=== PATIENT | female | born 1950 | race Caucasian/White ===

== ENCOUNTER → 2018-12-14 08:47 | Outpatient (CLI) | payer MEDICARE, SELFPAY ==
--- NOTE | 2018-12-14 08:54 | FL_ITS ---
PROCEDURE: FL UPPER GI SMALL BOWEL CLINICAL INDICATION: ABD PAIN Diffuse abdominal pain, unable to eat COMPARISON: No exams were available for comparison TECHNIQUE: FLUOROSCOPY TIME : 2 minutes and 1 second FINDINGS: Emanations Analysis Technician exam shows postsurgical changes of the thoracic lumbar spine with inter pedicular screws with connecting rods at L1 and L2. There is linear calcification noted in both sides of pelvis etiology indeterminate. CT may provide further evaluation. There is a moderate amount of retained colonic feces There is a small hiatal hernia. The esophagus is otherwise unremarkable. The stomach and duodenal bulb have an unremarkable appearance. There did appear to be mucosal edema of the descending portion of the duodenum with prominence of the folds. The remaining small bowel however has an unremarkable appearance. Terminal ileum is unremarkable. No small bowel obstruction, mucosal abnormalities, or mass is evident. IMPRESSION: 1. Small hiatal hernia. 2. Thickening of the descending duodenal mucosal folds consistent with duodenitis. No ulcers demonstrated. 3. Moderate amount of retained colonic feces Dictated by: Ravi North MD 12/14/2018 11:56 Electronically signed by Ravi North MD in [place] 12/14/2018 11:56
== END ==
PROVIDERS: PCP Family Medicine; Visit Provider Family Medicine
DX: R10.9 Unspecified abdominal pain (principal)
CPT/HCPCS: 74245

== ENCOUNTER → 2019-10-12 14:51 | Outpatient (CLI) | payer MEDICARE, SELFPAY ==
--- NOTE | 2019-10-12 15:01 | XR_ITS ---
PROCEDURE: XR FOOT RT MIN 3V CLINICAL INDICATION: R FOOT PAIN COMPARISON: No exams were available for comparison FINDINGS: There are old fractures of the 2nd 3rd and 4th metatarsals distally with mild lateral angulation of the distal aspect the metatarsals. Mild osteoarthritic changes are present at the 1st metatarsal tarsal joint talonavicular joint and navicular cuneiform joint. Flexion deformity involves the 2nd through 5th toes. There is mild diffuse vascular calcification. Lucency is noted at the distal tibia on the AP view may be better evaluated with ankle films. IMPRESSION: Old 2nd 3rd and 4th metatarsal fractures distally with osteoarthritic changes. Nonspecific lucency of the distal tibia which may be better evaluated with ankle films. Dictated by: Ravi North MD 10/12/2019 16:07 Ravi North MD in [place] 10/12/2019 16:07
== END ==
PROVIDERS: PCP Family Medicine; Visit Provider Family Medicine
DX: M79.671 Pain in right foot (principal)
CPT/HCPCS: 73630

== ENCOUNTER → 2020-01-11 15:41 | Outpatient (CLI) | payer MEDICARE, SELFPAY ==
[2020-01-12 22:01] LABS: Covid-19 Nasal PCR Sendout Lex NOT DETECTED
== END ==
PROVIDERS: PCP Family Medicine; Visit Provider Family Medicine
DX: Z03.818 Encounter for observation for suspected exposure to other biological agents ruled out (principal)
CPT/HCPCS: U0004

== ENCOUNTER → 2020-02-15 10:29 | Outpatient (CLI) | payer MEDICARE, SELFPAY ==
--- NOTE | 2020-02-15 | US_ITS ---
APPROVED REPORT Exam Type: Ankle to Brachial Index Professor Of Visual Arts: Lizzy Reyez, LIVESTOCK TRADER Indications Claudication: Non-healing Ulcer: Rest Pain: ulcer 3rd digit left foot with discoloration, ulcers 5th digit and 3rd digit of right foot with discoloration noted Right brachial pressure not obtained per patient. Risk Factors Hypertension Pressures/Indices Right Indices Left Indices Brachial Brachial 198.00 mmHg Low Thigh 176.00 mmHg 0.89 Low Thigh 0.00 mmHg 0.00 Calf 0.00 mmHg 0.00 Calf 0.00 mmHg 0.00 Ankle(PT) 0.00 mmHg 0.00 Ankle(PT) 0.00 mmHg 0.00 Ankle(DP) 214.00 mmHg 1.08 Ankle(DP) 142.00 mmHg 0.72 Digit 126.00 mmHg 0.64 Digit 205.00 mmHg 1.04 Findings RT JACOB=1.1 LT JACOB=0.7 RT TBI=0.6 LT TBI=1.0 Diminished pulses bilaterally Abnormal waveforms distal left leg Conclusion RT JACOB=1.1 LT JACOB=0.7 RT TBI=0.6 LT TBI=1.0 Diminished pulses bilaterally Abnormal waveforms distal left leg Moderate left arterial disease Electronically signed by : Ravi North MD 02/21/2020 17:33:52
== END ==
PROVIDERS: PCP Family Medicine; Visit Provider Family Medicine
DX: I70.212 Atherosclerosis of native arteries of extremities with intermittent claudication, left leg (principal)
CPT/HCPCS: 93923

== ENCOUNTER → 2020-02-23 13:21 | Outpatient (CLI) | payer MEDICARE, SELFPAY ==
[2020-02-23 14:21] LABS: Basophils % 0.5 % (0.1-2.0); Eosinophils # 0.2 K/mm3 (0.0-0.4); Eosinophils % 3.1 % (0.1-12.0); Hematocrit 38.5 % (37.0-47.0); Hemoglobin 12.5 g/dL (12.2-16.2); Lymphocytes # 1.1 K/mm3 (0.7-4.5); Lymphocytes % 15.1 % (10-50); Mean Corpuscular HGB Conc 32.3 g/dL (31.8-35.4); Mean Corpuscular Hemoglobin 29.8 pg (27.0-31.2); Mean Corpuscular Volume 92.3 fl (81-99); Mean Platelet Volume 7.1 fl (7.4-10.4); Monocytes # 0.4 K/mm3 (0.1-1.0); Monocytes % 5.3 % (1.7-9.3); Neutrophils # 5.7 K/mm3 (1.8-7.8); Neutrophils % 75.9 % (37.0-80.0); Platelet Count 318 K/mm3 (142-424); Red Blood Count 4.18 M/mm3 (4.20-5.40); Red Cell Distribution Width 15.9 % (11.5-17.5); White Blood Count 7.5 K/mm3 (4.8-10.8)
[2020-02-23 14:44] LABS: Chloride 101 mmol/L (98-107)
[2020-02-23 14:45] LABS: Potassium 5.2 mmoL/L (3.5-5.1); Sodium 137 mmol/L (136-145)
[2020-02-23 14:47] LABS: Alanine Aminotransferase 39 U/L (12-78); Anion Gap 10.2 mEq/L (5-15); Aspartate Amino Transferase 44 U/L (14-36); Bilirubin,Unconjugated 0.5 mg/dL (0.0-1.1); Blood Urea Nitrogen 39 mg/dl (7-17); Carbon Dioxide 31 mmol/L (22.0-30.0); Estimated Glomerular Filt Rate 32 ml/min (>60); GFR (African American) 39 ML/MIN (>60)
[2020-02-23 14:48] LABS: Albumin Level 4.1 g/dl (3.5-5.0); Alkaline Phosphatase 138 U/L (38-126); Bilirubin,Direct 0.1 mg/dl (0.0-0.4); Bilirubin,Indirect 0.5 mg/dL (0.0-0.9); Bilirubin,Total 0.6 mg/dl (0.2-1.3); Calcium 10.4 mg/dl (8.4-10.2); Cholesterol 237 mg/dl (140-200); Glucose 110 mg/dl (74-100); HDL Cholesterol 78 mg/dl (40-60); Total Protein,Serum 7.3 g/dl (6.3-8.2); Triglycerides 147 mg/dl (30-150); VLDL Cholesterol 29 mg/dL (0-40)
[2020-02-23 14:54] LABS: Coronavirus 19 IgG Antibody Negative (Negative); Coronavirus 19 IgM Antibody Negative (Negative)
[2020-02-23 15:04] LABS: Free T4 (Free Thyroxine) 1.15 ng/dl (0.78-2.19)
[2020-02-23 15:18] LABS: Thyroid Stimulating Hormone 2.22 uIU/mL (0.465-4.68)
== END ==
PROVIDERS: Visit Provider Internal Medicine
DX: I73.9 Peripheral vascular disease, unspecified (principal); L81.9 Disorder of pigmentation, unspecified; M79.605 Pain in left leg; N28.9 Disorder of kidney and ureter, unspecified; R53.83 Other fatigue; I25.10 Atherosclerotic heart disease of native coronary artery without angina pectoris; Z01.818 Encounter for other preprocedural examination; Z03.818 Encounter for observation for suspected exposure to other biological agents ruled out
CPT/HCPCS: 36415; 80048; 80061; 80076; 84439; 84443; 85025; 86328

== ENCOUNTER 2020-02-24 12:59 | Observation (INO) | payer MEDICARE, SELFPAY ==
[2020-02-24] VITALS (19 sets, daily range): BP systolic 147–211; BP diastolic 60–95; PULSE 48–65; RESP 16–18; TEMP 36.6–37; O2SAT 93–100; BMI 26.6; BMI 27.6
--- NOTE | 2020-02-24 07:04 | IR_ITS ---
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 COMPLICATIONS NONE Estimated Blood Loss: LESS THAN 10 ML TECHNIQUE 1% lidocaine used to anesthetize the right anterior aspect of the right wrist. The right radial artery was accessed via the central technique and an arterial cocktail using 5000U heparin, 2.5 mg verapamil, 1mg lidocaine and 800mcg nitroglycerin into the right radial sheath intra-arterially. A PV multi curve catheter was then placed into the left common iliac artery via the right radial sheath and iliofemoral angiography was performed with unilateral left iliac artery angiography was performed. Following this the catheter was advanced to the proximal portion of the left femoral artery and selective angiography was performed. Following this additional heparin was administered and an advantage wire was used to attempt revascularization. After a few minutes of gently trying to pass the wire through the subtotal occlusion I decided to abandon the procedure in order to avoid acutely closing what little blood flow was remaining. At this point a 6 Indonesian SEVILLA catheter was advanced and left selective renal angiography was performed. At the end of the procedure the apparatus was removed the sheath was removed good hemostasis was achieved using TR banding patient was transfer the postop holding in stable condition ANGIOGRAPHIC RESULTS The left common iliac artery is patent as is the left external iliac artery and left internal iliac artery The left common femoral artery has a greater than 90% subtotal occlusion with scant flow traversing the lesion. 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 Patient's situation is severe to critical in nature and patient requires urgent/emergent revascularization. 2. All attempts will be made to transfer patient to a tertiary facility where vascular surgery can perform a left femoral artery endarterectomy and revascularize the left leg. Due to the crisis with tertiary facilities at maximum capacity we will admit the patient place the patient on a heparin drip and monitor. If patient's situation worsens we will be forced to open the left femoral artery in a percutaneous manner in order to save the left limb. For the time being I believe patient can be safely heparinized and transferred to a tertiary facility for definitive therapy. 3. I spoke with a cardiothoracic-vascular surgeon at [facility] who i has excepted the patient in transfer as soon as a bed becomes available 4. Patient will be admitted to Dr. Walsh this evening and will be started on a heparin drip. Dr. Walsh is aware of admission Electronically signed by : Rajesh Mi
--- NOTE | 2020-02-24 08:11 | CA_ITS ---
APPROVED REPORT EXAM: Comprehensive 2D, Doppler, and color-flow Echocardiogram Rep[employer]r [employer]: GALO DAMON Ht: 5 ft 6 in Wt: 160lbs BSA: 1.82 BP: 207/81 mmHg Indications: A-FIB, CAD, HX-CABG, MURMUR 2D Dimensions IVSd 0.82 cm LVEF (Visual) 52.80 % PWd 0.83 cm LVDd 4.62 cm LVDs 3.37 cm Aortic Root 2.97 cm Left Atrium 4.02 cm LVOT 1.69 cm (M/F) 1.5-2.5 M-Mode Dimensions LVDd 4.65 cm (3.5-5.7) Ao Diam 2.99 cm (2.0-3.7) LVDs 3.36 cm (3.5-5.7) EF (Teich) 53.80% EPSs 0.57 cm FS 27.70% EDV (Teich) 99.80 mL ESV (Teich) 46.10 mL Aortic Valve LVOT Max 114.00 (70-110 cm/s) LVOT VTI 27.64 cm AoV Peak Chele. 201.00 (50-130 cm/s) AO Peak GR. 16.20 mmHg AO Mean GR. 8.50 (<5 mmHg) AO VTI 50.35 (18-25 cm) ILYA (VTI) 1.23 (2.5-4.5 cm2) Pulmonary Valve WV End VMAX 310.00 cm/s Tricuspid Valve TR P. Velocity 364.00 cm/s RAP Estimate 10.00 mmHg RVSP 63.00 mmHg Left Ventricle Left atrium is moderately enlarged, left ventricle is normal size, mild concentric left ventricular hypertrophy, visually estimated ejection fraction 55% with no obvious regional wall motion abnormality, diastolic parameters are inconclusive. Right Ventricle Right atrium and right ventricle are normal size and contractility. Aortic Valve Aortic valve is thickened and calcified, there is mild aortic stenosis present, there is no aortic insufficiency. Mitral Valve Mitral valve has mitral annular calcification, leaflets are minimally thickened and calcified, there is no significant mitral stenosis, there is mild mitral regurgitation. Tricuspid Valve Tricuspid valve grossly normal, there is mild tricuspid regurgitation. Pulmonic Valve Pulmonic valve is poorly visualized. Great Vessels Aortic root is normal size. Pericardium No significant pericardial effusion noted. Conclusion 1. Moderately enlarged left atrium, normal left ventricular size, mild concentric left ventricular hypertrophy, visually estimated ejection fraction 55% with no regional wall motion abnormality, diastolic parameters are inconclusive. 2. Thickened and calcified aortic valve with mild aortic stenosis, there is no aortic insufficiency. 3. Mitral annular calcification, there is no significant mitral stenosis, mild mitral regurgitation. 4. No significant pericardial effusion noted. Electronically signed by : Zev Gilman, 02/24/2020 14:39:33
[2020-02-24 09:59] LABS: INR 1.55 (0.9-1.1); Prothrombin Time 16.5 seconds (9.4-11.8)
--- NOTE | 2020-02-24 13:08 | P.CONPHA_ITS ---
[facility] Pharmacy Heparin Dosing - Demographic Data Admission date:: 02/24/20 Date: 02/24/20 Time: 13:08 Allergies/Adverse Reactions: Allergies Allergy/AdvReac Type Severity Reaction Status Date / Time corn Allergy Intermediate Difficulty Verified 02/24/20 08:14 Breathing sucralose Allergy Intermediate NA-NAUSEA Verified 02/23/20 11:29 [From SPLENDA (SUCRALOSE)] morphine [MORPHINE] Allergy Mild S-DIFF. Verified 02/23/20 11:29 BREATHING dextrose Allergy Unknown Unknown Verified 02/24/20 08:14 allergy reaction propoxyphene Allergy Unknown NA-NAUSEA/V Verified 02/23/20 11:29 OMITING Height: 1.68 m Weight: 74.8 kg - Indication Medication therapy:: Heparin Patient Problems: Current Active Problems Stage 3b chronic kidney disease (Acute) Peripheral arterial occlusive disease (Acute) Atrial fibrillation (Acute) ASHD (arteriosclerotic heart disease) (Acute) Essential hypertension (Acute) Renal artery stenosis, [place] (Acute) CVA?: No Bleeding problem?: No Kidney disease?: No NE?: No Desired PTT range:: 60-80 seconds - Monitoring Dose Monitor 1 Date: 02/24/20 Time: 13:09 PTT Result:: 16.5 Infusion Rate:: 1,300 UNITS/HR Comment:: 5,000 UNIT BOLUS Dose Monitor 2 Date: 02/24/20 Time: 19:00 Comment:: PATIENT WAS TRANSFERRED - Core Measures Is INR > or = 2 at discharge?: No Most Recent Labs:: Laboratory Results - last 24 hr 02/24/20 09:26: PT 16.5 H, INR 1.55 H If INR was < than 2.0 why was therapy stopped?: PATIENT TRANSFERRED Were Heparin and Warfarin started on the same day?: No If not, why?: PATIENT TRANSFERRED
--- NOTE | 2020-02-24 13:25 | HMH.HP ---
*Admission Date: 02/24/20 *Chief complaint: critical ischemia of left leg *History of present illness: 69 year old female with history of a-fib, ckd stage 3b, underwent angiogram of left leg by Dr. Husain for severe PAD and found to have occlusion of the left common femoral artery. Patient has experienced claudication has multple toes that have gradually turned blue that led to her workup. PAD was deemed critical and transfer has been arranged to Vascular Surgeon at [facility] . Patient is being admitted while awaiting transfer and placed on a heparin drip. [facility] History I have reviewed the patient's past medical history: Yes Medical History: Reports:: Atrial Fibrillation, Cancer, Coronary Artery Disease, Hypertension Denies:: Seizures *Have you ever received a pneumonia vaccine?: Yes *Have you received a flu vaccine this season?: No Other Surgeries: Yes: CABG, Cardiac Catheterization, Cardiac Surgery, Coronary Stent - *Social History Last grade of school completed: Some college Smoking Status: Never smoker Alcohol Intake: never Substance Use Type: denies use *Occupational Status:: retired Housing: house Household Members: none *Travel in the last 8 weeks: None Family Hx:: Coronary Artery Disease, Stroke Review of Systems - Constitutional Denies body ache(s), Denies chills - ENT Denies change in voice, Denies difficulty swallowing - *Cardiovascular Reports irregular heart rhythm, Denies chest pain, Denies chest pain at rest, Denies shortness of breath - *Respiratory Denies chest congestion, Denies cough - *Gastrointestinal Denies change in bowel habits, Denies change in stools - *Genitourinary Denies difficulty urinating, Denies painful urination - *Musculoskeletal Reports joint pain, Denies abnormal walking - Integumentary/Breasts Denies hair loss, Denies bleeding lesions - *Neurologic Denies abnormal movements Meds Home Medications Medication Instructions Recorded Confirmed Type losartan 50 mg tablet 50 mg PO BID 02/23/20 02/24/20 History metoprolol tartrate 100 mg tablet 100 mg PO BID 02/23/20 02/24/20 History multivitamin 1 tab PO DAILY 02/23/20 02/24/20 History warfarin 4 mg tablet 4.5 mg PO DAILY tab 02/23/20 02/24/20 History Oxycodone HCl [Oxycodone (IR) 5mg 5 mg PO QID 02/24/20 02/24/20 History Cap] Allergies Allergy/AdvReac Type Severity Reaction Status Date / Time corn Allergy Intermediate Difficulty Verified 02/24/20 08:14 Breathing sucralose Allergy Intermediate NA-NAUSEA Verified 02/23/20 11:29 [From SPLENDA (SUCRALOSE)] morphine [MORPHINE] Allergy Mild S-DIFF. Verified 02/23/20 11:29 BREATHING dextrose Allergy Unknown Unknown Verified 02/24/20 08:14 allergy reaction propoxyphene Allergy Unknown NA-NAUSEA/V Verified 02/23/20 11:29 OMITING Exam Vital signs and Labs for Last 24 Hours: Temp Pulse Resp BP Pulse Ox 98.4 F 61 17 178/89 H 97 02/24/20 09:20 02/24/20 13:10 02/24/20 13:10 02/24/20 13:10 02/24/20 13:10 Laboratory Results - last 24 hr 02/24/20 09:26: PT 16.5 H, INR 1.55 H I & O for Last 24 hours: Intake & Output 02/22/20 02/23/20 02/24/20 02/25/20 11:59 11:59 11:59 11:59 Weight 165 lb 164 lb 14.492 oz - Constitutional no acute distress - *Routine HEENT Exam Head: Present: normocephalic Eye: Present: EOMI, PERRL ENT: Present: mucous membranes moist - *Routine Neck Exam Present: supple. Absent: lymphadenopathy - *Routine Respiratory Exam Present: CTA bilaterally - *Routine Cardiovascular Exam Present: irregularly irregular - *Routine Abdominal Exam Present: soft, normoactive bowel sounds. Absent: tenderness - *Routine Extremities Exam Present: cyanosis (left second toe), extremity cold to touch (left foot). Absent: pulses intact, normal capillary refill - *Routine Neurological Exam Present: alert, oriented X3. Absent: motor deficit Assessment and Plan (1) Peripheral art
--- NOTE | 2020-02-24 14:29 | HMH.CNCARD ---
History of Present Illness Consult date: 02/24/20 Requesting physician: Kirby Walsh Chief complaint: PAD, claudication Additional Medical History:: 1. CAD with history of CABG and mitral valve repair, 2010 A. History of coronary stents 2. HTN 3. Atrial fibrillation with Reyes mini-MAZE procedure A. chronic Coumadin therapy 4. History of Elkins-Gabriel syndrome 5. Renal insufficiency/CKD, stage IV A. Ureter stents 6. History of cervical cancer with radiation and chemotherapy in 1991 7. History of Mitral Valve Repair, 2010 8. PAD with claudication, 02/[address] scan of abdomen had a blockage in her left leg, this is CT scan was performed in February 2019 and the doctor that reviewed it said that it looked like that she had a blockage in her left iliac. This was not documented on the CT scan report. However during review of the report She does have left renal atrophy and right renal hydronephrosis. Patient concerned that she is going to lose her lower extremity, left. On exam her left toes are black-brown with what appears to be embolic shower lesions. She does not have a good palpable pulse in that left foot. She states that she has resting claudication in the left leg and also is unable to walk over 30 feet without stopping secondary to leg claudication. JACOB January 2020 revealed right 1.1 left 0.7. B. Renal angio plus LE angio, 02/24/2020, ANGIOGRAPHIC RESULTS The left common iliac artery is patent as is the left external iliac artery and left internal iliac artery The left common femoral artery has a greater than 90% subtotal occlusion with scant flow traversing the lesion. 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 Patient's situation is severe to critical in nature and patient requires urgent/emergent revascularization. 2. All attempts will be made to transfer patient to a tertiary facility where vascular surgery can perform a left femoral artery endarterectomy and revascularize the left leg. Due to the crisis with tertiary facilities at maximum capacity we will admit the patient place the patient on a heparin drip and monitor. If patient's situation worsens we will be forced to open the left femoral artery in a percutaneous manner in order to save the left limb. For the time being I believe patient can be safely heparinized and transferred to a tertiary facility for definitive therapy. 3. I spoke with a cardiothoracic-vascular surgeon at [facility] who i has excepted the patient in transfer as soon as a bed becomes available 4. Patient will be admitted to Dr. Walsh this evening and will be started on a heparin drip. Dr. Walsh is aware of admission Electronically signed by : Rajesh Husain, 02/24/2020 14:20:24 History of present illness: 69 year old female with history of a-fib, ckd stage 3b, underwent angiogram of left leg by Dr. Husain for severe PAD and found to have occlusion of the left common femoral artery. Patient has experienced claudication has multple toes that have gradually turned blue that led to her workup. PAD was deemed critical and transfer has been arranged to Vascular Surgeon at [facility] . Patient is being admitted while awaiting transfer and placed on a heparin drip. The above per Dr. Walsh [facility] History Medical History: Reports:: Atrial Fibrillation, Cancer, Coronary Artery Disease, Hypertension Denies:: Seizures *Have you ever received a pneumonia vaccine?: Yes *Have you received a flu vaccine this season?: No Other Surgeries: Yes: CABG,
[2020-02-24 16:01] LABS: Adenovirus,PCR Not Detected (NotDetected); Bordetella Pertussis Not Detected (NotDetected); Chlamydophila Pneumoniae, PCR Not Detected (NotDetected); Coronavirus 19, PCR Not Detected (NotDetected); Coronavirus 229E Not Detected (NotDetected); Coronavirus NL63 Not Detected (NotDetected); Coronavirus OC43 Not Detected (NotDetected); Coronovirus HKU1,PCR Not Detected (NotDetected); Human Metapneumovirus Not Detected (NotDetected); Influenza A, PCR Not Detected (NotDetected); Influenza AH1, 2009 Not Detected (NotDetected); Influenza AH1, PCR Not Detected (NotDetected); Influenza AH3,PCR Not Detected (NotDetected); Influenza B, PCR Not Detected (NotDetected); Mycoplasma Pneumoniae, PCR Not Detected (NotDetected); Parainfluenza 1, PCR Not Detected (NotDetected); Parainfluenza 2, PCR Not Detected (NotDetected); Parainfluenza 3, PCR Not Detected (NotDetected); Parainfluenza 4, PCR Not Detected (NotDetected); Respiratory Syncytial Virus Not Detected (NotDetected); Rhinovirus/Enterovirus Not Detected (NotDetected)
[2020-05-01 13:53] LABS: CATHL Activated Clotting Time > 400 SEC (74-125)
== END 2020-02-24 18:31 | disposition short-term general hospital (02) ==
LOC: 2ND 12:59
PROVIDERS: Admitting Provider Internal Medicine; PCP Family Medicine; Visit Provider Family Medicine
DX: I70.1 Atherosclerosis of renal artery; I70.92 Chronic total occlusion of artery of the extremities; I77.1 Stricture of artery; M79.605 Pain in left leg; I70.222 Atherosclerosis of native arteries of extremities with rest pain, left leg; R53.83 Other fatigue; I25.10 Atherosclerotic heart disease of native coronary artery without angina pectoris; I48.91 Unspecified atrial fibrillation; N18.32 Chronic kidney disease, stage 3b; L81.9 Disorder of pigmentation, unspecified; Z88.8 Allergy status to other drugs, medicaments and biological substances; Z95.1 Presence of aortocoronary bypass graft; Z79.899 Other long term (current) drug therapy
CPT/HCPCS: 36247; 36251; 75710; 85347; 85610; 87581; 87633; 87798; 93306; 99152; 99153; C1725; C1769; G0378; J1644; Q9966; U0003

== ENCOUNTER → 2020-04-13 16:29 | Outpatient (CLI) | payer MEDICARE, SELFPAY ==
--- NOTE | 2020-04-13 16:38 | XR_ITS ---
PROCEDURE: XR CHEST PORTABLE CLINICAL HISTORY: covid 19 Cough and shortness of air COMPARISON: CR CXR CHEST(2 VIEWS-NOT PORTABLE) from 04/12/2015 CR CXR CHEST(2 VIEWS-NOT PORTABLE) from 11/21/2015 CR XR CHEST PORTABLE from 03/15/2019 FINDINGS: Prior median sternotomy and valve replacement. Mild cardiomegaly. No evidence of CHF. The lungs are clear without infiltrates, suspicious nodules, or pleural effusions. Postsurgical changes with inter pedicular screws and connecting rods in the lower thoracic spine IMPRESSION: No acute findings. Dictated by: Ravi North MD 04/13/2020 17:15 Ravi North MD in [place] 04/13/2020 17:15
== END ==
PROVIDERS: PCP Nurse Practitioner Family; Visit Provider Nurse Practitioner Family
DX: Z20.822 Contact with and (suspected) exposure to COVID-19 (principal)
CPT/HCPCS: 71045; U0003

== ENCOUNTER → 2020-04-26 15:23 | Outpatient (CLI) | payer MEDICARE, SELFPAY ==
[2020-04-26 15:38] LABS: Basophils # 0.1 K/mm3 (0-0.2); Basophils % 0.6 % (0.1-2.0); Eosinophils # 0.3 K/mm3 (0.0-0.4); Eosinophils % 2.7 % (0.1-12.0); Hematocrit 33.2 % (37.0-47.0); Hemoglobin 10.2 g/dL (12.2-16.2); Lymphocytes # 0.8 K/mm3 (0.7-4.5); Lymphocytes % 7.3 % (10-50); Mean Corpuscular HGB Conc 30.7 g/dL (31.8-35.4); Mean Corpuscular Hemoglobin 29.1 pg (27.0-31.2); Mean Corpuscular Volume 94.7 fl (81-99); Mean Platelet Volume 6.8 fl (7.4-10.4); Monocytes # 0.5 K/mm3 (0.1-1.0); Monocytes % 4.6 % (1.7-9.3); Neutrophils # 9.3 K/mm3 (1.8-7.8); Neutrophils % 84.9 % (37.0-80.0); Platelet Count 419 K/mm3 (142-424); Red Blood Count 3.51 M/mm3 (4.20-5.40); Red Cell Distribution Width 15.9 % (11.5-17.5)
[2020-04-26 17:59] LABS: Coronavirus 19 IgG Antibody Negative (Negative); Coronavirus 19 IgM Antibody Negative (Negative)
== END ==
PROVIDERS: Visit Provider Family Medicine
DX: Z20.822 Contact with and (suspected) exposure to COVID-19 (principal); I10 Essential (primary) hypertension; N18.32 Chronic kidney disease, stage 3b
CPT/HCPCS: 36415; 85025; 86328

== ENCOUNTER → 2020-07-11 11:47 | Outpatient (CLI) | payer MEDICARE, SELFPAY ==
--- NOTE | 2020-07-11 | CT_ITS ---
PROCEDURE: CT HEAD/BRAIN WO CON CLINICAL INDICATION: OBRIEN Headache COMPARISON: No exams were available for comparison TECHNIQUE: Axial images obtained. All CT scans at the facility use one or more dose reduction, viz: automated exposure control, ma/kV adjustment per patient size (including targeted exams where dose is matched to indication, i.e. head), or iterative reconstruction technique. FINDINGS: Oval area of hyperdensity noted in the right occipital lobe posteriorly slightly heterogeneous consistent with intraparenchymal hemorrhage measuring 2.8 x 1.9 cm. There is some mild surrounding edema. No midline shift is evident. There is mild generalized atrophy and low-density changes in the periventricular region consistent with microangiopathic changes. Oval area of decreased density is present in the left subinsular region at 1 cm and could be due to an old lacunar infarction or choroidal fissure cyst. No obvious intraventricular hemorrhage. No obvious subarachnoid or subdural hemorrhage. IMPRESSION: 2.8 x 1.9 cm intraparenchymal hematoma right occipital lobe with mild edema. Referring physician's office is closed at the moment. Patient is therefore sent to the emergency room for further evaluation. Dictated by: Ravi North MD 07/11/2020 12:16 Ravi North MD in [place] 07/11/2020 12:16
== END ==
PROVIDERS: PCP Family Medicine; Visit Provider Family Medicine
DX: R51.9 Headache, unspecified (principal)
CPT/HCPCS: 70450

== ENCOUNTER 2020-07-11 12:21 | Emergency (ER) | payer MEDICARE, SELFPAY ==
--- NOTE | 2020-07-11 12:31 | HMH.EDGENADL ---
ED Disposition Clinical Impression: Supratherapeutic INR Intracerebral hemorrhage Qualifiers: Intracerebral hemorrhage etiology: nontraumatic Cerebral hemorrhage location: cerebral hemisphere, unspecified portion Laterality: right Qualified Code(s): I61.2 - Nontraumatic intracerebral hemorrhage in hemisphere, unspecified Disposition: Xfer Short-Term Hosp Condition on Discharge: Serious Referrals: Kirby Walsh MD [Primary Care Provider] - Forms: Transfer Record - ED - Critical Care Critical Care Time: Yes Attestation: On , the high probability of a clinically significant, sudden or life threatening deterioration of the following system(s) required my full and direct attention, intervention and personal management. The time I documented below is in addition to time spent performing reported procedures but includes the following listed in this critical care notation. Total Critical Care Time: 40 Vital system(s) involved:: Central Nervous System My critical care processes included: Assessment & monitoring of V/S, Initial and Re-exams, Data Review/Interpretation, Coordinating Care, Medication Orders and management, Documentation Medical Decision Making - Maninder Inquiry Pt receiving controlled substance: No Vital Signs: 07/11/20 12:32 Temperature 98.1 F Temperature Source Oral Pulse Rate [Right] 111 H Respiratory Rate 16 Blood Pressure [Left Arm] 156/69 H Blood Pressure Mean [Left Arm] 98 Blood Pressure Source [Left Arm] Automatic Cuff Blood Pressure Position [Left Arm] Supine 02 Sat by Pulse Oximetry 99 - Lab Data Lab Results 07/11/20 12:25: WBC 11.7 H, RBC 4.00 L, Hgb 9.8 L, Hct 31.0 L, MCV 77.6 L, MCH 24.5 L, MCHC 31.5 L, RDW 17.2, Plt Count 354, MPV 6.9 L, Neut % (Auto) 87.6 H, Lymph % (Auto) 7.4 L, [place] % (Auto) 3.5, Eos % (Auto) 0.9, Baso % (Auto) 0.5, Neut # (Auto) 10.3 H, Lymph # (Auto) 0.9, [place] # (Auto) 0.4, Eos # (Auto) 0.1, Baso # (Auto) 0.1, Total Counted 100, Neutrophils % (Manual) 90 H, Lymphocytes % (Manual) 7 L, Monocytes % (Manual) 3, Platelet Estimate Normal, RBC Morphology Normal, Hypochromasia 2+ 07/11/20 12:25: PT 75.2 H, INR 7.39 H 07/11/20 12:25: Sodium 133 L, Potassium 4.7, Chloride 99, Carbon Dioxide 24, Anion Gap 14.7, BUN 41 H, Creatinine 1.70 H, Estimated Creat Clear 33, Estimated GFR 30 L, Est GFR ( Amer) 36 L, Glucose 138 H, Calcium 10.2, Total Bilirubin 0.7, AST 60 H, ALT 74, Alkaline Phosphatase 172 H, Total Protein 8.8 H, Albumin 4.1, Globulin 4.7 H, Albumin/Globulin Ratio 0.9 L Result diagrams: 07/11/20 12:25 07/11/20 12:25 Orders (Tests/Meds): ED MEDICATIONS Generic Name Dose Route Start Last Admin Trade Name Freq PRN Reason Stop Dose Admin Nicardipine HCl 25 mg/ Sodium 250 mls @ 50 mls/hr 07/11/20 13:00 Chloride IV 08/10/20 12:59 .Q5H YUSUF Protocol Sodium Chloride 250 mls @ 25 mls/hr 07/11/20 13:30 Sod Chlor 0.9% 250ml Bag IV 07/12/20 13:29 .Q10H YUSUF Discontinued Medications Generic Name Dose Route Start Last Admin Trade Name Freq PRN Reason Stop Dose Admin Phytonadione 10 mg 07/11/20 13:15 07/11/20 13:48 Phytonadione 10mg/Ml Ampule SQ 07/11/20 13:16 10 mg ONCE ONE Administration ORDERS Category Date Time Status ABO/RH Type Stat BBK 07/11/20 13:34 Received Fresh Frozen Plasma Stat BBK 07/11/20 13:34 Received XR chest portable Stat Exams 07/11/20 12:44 Taken - Radiology Data #1 Image(s): Chest Image Reviewed: Yes I reviewed the patient's radiology image Prior sternotomy. Poor inspiration. - ECG Data Tracing #1 EKG interpreted by Deonte Rivera MD: Rhythm: Wide-complex regular rhythm, tachycardic rate. Rate: 111 [place]: normal Ectopy: none Conduction: Left bundle branch block ST Segment Changes: none T Wave Changes: none Q Waves: none No evidence of acute ischemia or injury - Physician Consults Physician Consulted: [facility] Time: 12:40
[2020-07-11 12:32] VITALS: BP 156/69; PULSE 111; RESP 16; TEMP 36.7; O2SAT 99; BMI 24.3
--- NOTE | 2020-07-11 12:35 | PC.NURSE ---
placed call to [facility] for neuro surgery, they are to return the call.
--- NOTE | 2020-07-11 12:43 | PC.NURSE ---
speaking with Dr. Stapleton from [facility]
--- NOTE | 2020-07-11 12:44 | XR_ITS ---
PROCEDURE: XR CHEST PORTABLE CLINICAL HISTORY: cerebral hemorrhage COMPARISON: CR CXR CHEST(2 VIEWS-NOT PORTABLE) from 11/21/2015 CR XR CHEST PORTABLE from 03/15/[address] ABDOMEN PELVIS W CON from 03/15/2019 CR XR CHEST PORTABLE from 04/13/2020 FINDINGS: There has been a prior median sternotomy with mitral valve replacement. Borderline cardiomegaly without failure. There is some scarring within the lingula region. No lobar consolidation or collapse is evident. There postsurgical changes of the lower thoracic and upper lumbar spine with inter pedicular screws and connecting rods. No acute bony abnormalities. IMPRESSION: No acute findings. Dictated by: Ravi North MD 07/11/2020 14:17 Ravi North MD in OV 07/11/2020 14:17
--- NOTE | 2020-07-11 12:45 | PC.NURSE ---
called for requirements manager, they will call warehouse incentive selector to see plan of action, there are no icu beds and pt may have to go to ER.
--- NOTE | 2020-07-11 12:51 | PC.NURSE ---
CHAVEZ GODFREY speaking with outcomes manager at [facility]
[2020-07-11 12:53] LABS: Basophils # 0.1 K/mm3 (0-0.2); Basophils % 0.5 % (0.1-2.0); Eosinophils # 0.1 K/mm3 (0.0-0.4); Eosinophils % 0.9 % (0.1-12.0); Hemoglobin 9.8 g/dL (12.2-16.2); Lymphocytes # 0.9 K/mm3 (0.7-4.5); Lymphocytes % 7.4 % (10-50); Mean Corpuscular HGB Conc 31.5 g/dL (31.8-35.4); Mean Corpuscular Hemoglobin 24.5 pg (27.0-31.2); Mean Corpuscular Volume 77.6 fl (81-99); Mean Platelet Volume 6.9 fl (7.4-10.4); Monocytes # 0.4 K/mm3 (0.1-1.0); Monocytes % 3.5 % (1.7-9.3); Neutrophils # 10.3 K/mm3 (1.8-7.8); Neutrophils % 87.6 % (37.0-80.0); Platelet Count 354 K/mm3 (142-424); Red Cell Distribution Width 17.2 % (11.5-17.5); White Blood Count 11.7 K/mm3 (4.8-10.8)
[2020-07-11 12:55] LABS: Chloride 99 mmol/L (98-107); Potassium 4.7 mmoL/L (3.5-5.1); Sodium 133 mmol/L (136-145)
[2020-07-11 12:56] LABS: MANUAL DIFFERENTIAL MANUAL DIFFERENTIAL (MANUAL DIFF)
--- NOTE | 2020-07-11 12:57 | PC.NURSE ---
face sheet faxed to [facility] at this time
[2020-07-11 12:58] LABS: Alanine Aminotransferase 74 U/L (12-78); Albumin Level 4.1 g/dl (3.5-5.0); Albumin/Globulin Ratio 0.9 (1.1-1.8); Alkaline Phosphatase 172 U/L (38-126); Anion Gap 14.7 mEq/L (5-15); Aspartate Amino Transferase 60 U/L (14-36); Bilirubin,Total 0.7 mg/dl (0.2-1.3); Blood Urea Nitrogen 41 mg/dl (7-17); Calcium 10.2 mg/dl (8.4-10.2); Carbon Dioxide 24 mmol/L (22.0-30.0); Creatinine Clearance Estimated 33 mL/min (50-200); Estimated Glomerular Filt Rate 30 ml/min (>60); GFR (African American) 36 ML/MIN (>60); Globulin 4.7 g/dL (1.3-3.2); Glucose 138 mg/dl (74-100); Total Protein,Serum 8.8 g/dl (6.3-8.2)
--- NOTE | 2020-07-11 13:00 | PC.NURSE ---
Report called to Luly Luo RN.
[2020-07-11 13:09] LABS: INR 7.39 (0.9-1.1); Prothrombin Time 75.2 seconds (10.1-12.5)
[2020-07-11 13:24] LABS: Hypochromasia 2+; Lymphocytes % 7 % (10-50); Monocytes % 3 % (2-9); Neutrophils % 90 % (42-76); Platelet Estimate Normal; RBC Morphology Normal; Total Cells Counted 100
--- NOTE | 2020-07-11 13:25 | PC.NURSE ---
[employer] accpeted flight 22 mins ETA
--- NOTE | 2020-07-11 13:34 | PC.NURSE ---
[employer] notified 10 min ETA
--- NOTE | 2020-07-11 13:38 | ECG_ITS ---
APPROVED REPORT Exam: Resting ECG HR:111 bpm ECG Measurements Heart Rate 111 AXES QRSd 130 QRS 10 QT 374 T 234 QTc 508 Conclusion Wide QRS rhythm Left bundle branch block Abnormal ECG Electronically signed by : Kirby Bellamy, 07/15/2020 07:34:49
--- NOTE | 2020-07-11 13:45 | PC.NURSE ---
[facility] here to transport patient. patient stable, report given to RN
--- NOTE | 2020-07-11 13:54 | PC.NURSE ---
Called lab to check on status of [facility] and they advised it would be another 15 minutes. Flight crew advised they could be in [place] within 14 mins. Advised MD of the hold up.
--- NOTE | 2020-07-11 14:01 | PC.NURSE ---
patient will be transported to [facility]. ROom will be [address] [place] [address]
[2020-07-11 14:03] VITALS: BP 131/69; PULSE 110; RESP 18; TEMP 36.7; O2SAT 98
== END 2020-07-11 13:45 | disposition short-term general hospital (02) ==
PROVIDERS: Emergency Provider Emergency Medicine; PCP Family Medicine
DX: I61.2 Nontraumatic intracerebral hemorrhage in hemisphere, unspecified (principal); R79.1 Abnormal coagulation profile; I25.10 Atherosclerotic heart disease of native coronary artery without angina pectoris; I10 Essential (primary) hypertension; Z79.899 Other long term (current) drug therapy
CPT/HCPCS: 36415; 70450; 71045; 80053; 85007; 85025; 85610; 86900; 86901; 93005; 99283; P9017

== ENCOUNTER 2020-07-29 09:49 | Emergency (ER) | payer MEDICARE, SELFPAY ==
[2020-07-29] VITALS (7 sets, daily range): BP systolic 110–135; BP diastolic 50–54; PULSE 101–111; RESP 16; TEMP 36.7–36.8; O2SAT 96–100; BMI 24.2
--- NOTE | 2020-07-29 10:30 | XR_ITS ---
PROCEDURE INFORMATION: Exam: XR Chest Exam date and time: 07/29/2020 10:30 AM Age: 70 years old Clinical indication: Shortness of breath; Patient HX: Cough, SOA TECHNIQUE: Imaging protocol: XR of the chest. Views: 1 view. COMPARISON: CR XR CHEST PORTABLE 07/11/2020 1:07 PM FINDINGS: Lungs: Normal. Pleural spaces: Unremarkable. No pleural effusion. No pneumothorax. Heart/Mediastinum: See Bones/joints finding. Vasculature: Atherosclerotic vascular disease. Bones/joints: Changes of prior sternotomy and cardiac valve repair. Partially visualized thoracolumbar spine posterior fusion hardware. IMPRESSION: No acute cardiopulmonary abnormality.
[2020-07-29 10:51] LABS: Chloride 100 mmol/L (98-107)
[2020-07-29 10:52] LABS: Potassium 4.3 mmoL/L (3.5-5.1); Sodium 133 mmol/L (136-145)
[2020-07-29 10:54] LABS: Alanine Aminotransferase 53 U/L (12-78); Albumin Level 3.7 g/dl (3.5-5.0); Albumin/Globulin Ratio 0.9 (1.1-1.8); Alkaline Phosphatase 197 U/L (38-126); Anion Gap 17.3 mEq/L (5-15); Aspartate Amino Transferase 43 U/L (14-36); Bilirubin,Total 1.4 mg/dl (0.2-1.3); Blood Urea Nitrogen 69 mg/dl (7-17); Carbon Dioxide 20 mmol/L (22.0-30.0); Creatinine Clearance Estimated 30 mL/min (50-200); Estimated Glomerular Filt Rate 26 ml/min (>60); GFR (African American) 32 ML/MIN (>60); Globulin 4.1 g/dL (1.3-3.2); Total Protein,Serum 7.8 g/dl (6.3-8.2)
--- NOTE | 2020-07-29 10:54 | HMH.EDGENADL ---
ED Disposition Clinical Impression: Generalized weakness, Stage 3b chronic kidney disease Disposition: Home, Self-Care Condition on Discharge: Good Instructions: DI for Muscle Weakness Referrals: Kirby Walsh MD [Primary Care Provider] - - Critical Care Critical Care Time: No Attestation: On 07/29/20, the high probability of a clinically significant, sudden or life threatening deterioration of the following system(s) required my full and direct attention, intervention and personal management. The time I documented below is in addition to time spent performing reported procedures but includes the following listed in this critical care notation. Medical Decision Making - Medical Records Medical records reviewed: Yes: I reviewed the patient's medical records. - Maninder Inquiry Pt receiving controlled substance: No Vital Signs: 07/29/20 09:51 07/29/20 09:58 07/29/20 10:30 Temperature 98.0 F Temperature Source Oral Pulse Rate 109 H 111 H Pulse Rate [Right] 101 H Respiratory Rate 16 Blood Pressure 135/53 L 110/51 L Blood Pressure [Right Arm] 122/50 L Blood Pressure Mean Blood Pressure Mean [Right Arm] 74 02 Sat by Pulse Oximetry 97 99 100 Oxygen Delivery Method Room Air 07/29/20 11:00 07/29/20 11:30 07/29/20 12:00 Temperature Temperature Source Pulse Rate 111 H 101 H 105 H Pulse Rate [Right] Respiratory Rate Blood Pressure 113/50 L 126/54 L 123/53 L Blood Pressure [Right Arm] Blood Pressure Mean 65 Blood Pressure Mean [Right Arm] 02 Sat by Pulse Oximetry 100 99 99 Oxygen Delivery Method - Lab Data Lab Results 07/29/20 10:15: WBC 10.0, RBC 4.32, Hgb 10.3 L, Hct 32.9 L, MCV 76.1 L, MCH 23.7 L, MCHC 31.2 L, RDW 18.9 H, Plt Count 260, MPV 7.8, Neut % (Auto) 92.3 H, Lymph % (Auto) 5.7 L, [place] % (Auto) 1.6 L, Eos % (Auto) 0.2, Baso % (Auto) 0.2, Neut # (Auto) 9.2 H, Lymph # (Auto) 0.6 L, [place] # (Auto) 0.2, Eos # (Auto) 0.0, Baso # (Auto) 0.0, Total Counted 100, Neutrophils % (Manual) 90 H, Lymphocytes % (Manual) 8 L, Monocytes % (Manual) 2, Platelet Estimate Normal, Hypochromasia 1+, Poikilocytosis 2+, Anisocytosis 1+, Microcytosis 1+, Tear Drop Cells 1+ 07/29/20 10:15: Sodium 133 L, Potassium 4.3, Chloride 100, Carbon Dioxide 20 L, Anion Gap 17.3 H, BUN 69 H, Creatinine 1.90 H, Estimated Creat Clear 30, Estimated GFR 26 L, Est GFR ( Amer) 32 L, Glucose 167 H, Calcium 9.2, Total Bilirubin 1.4 H, AST 43 H, ALT 53, Alkaline Phosphatase 197 H, Total Protein 7.8, Albumin 3.7, Globulin 4.1 H, Albumin/Globulin Ratio 0.9 L 07/29/20 10:15: Acetone Level None detected 07/29/20 11:28: Urine Color Yellow, Urine Appearance Clear, Urine pH 5.5, Ur Specific [place] 1.010, Urine Protein Trace, Urine Glucose (UA) Negative, Urine Ketones Negative, Urine Blood Negative, Urine Nitrate Negative, Urine Bilirubin Negative, Urine Urobilinogen 0.2, Ur Leukocyte Esterase 1+ A, Urine RBC None, Urine WBC 3-5, Ur Squamous Epith Cells Occasional, Amorphous Sediment 1+, Urine Bacteria None Result diagrams: 07/29/20 10:15 07/29/20 10:15 Orders (Tests/Meds): ED MEDICATIONS Discontinued Medications Generic Name Dose Route Start Last Admin Trade Name Freq PRN Reason Stop Dose Admin Sodium Chloride 1,000 mls @ 999 mls/hr 07/29/20 11:15 07/29/20 11:45 Sod Chlor 0.9% 1000ml Bag IV 07/29/20 12:15 999 mls/hr .Q1H1M YUSUF Administration ORDERS Category Date Time Status XR chest portable Stat Exams 07/29/20 10:30 Taken Urine Culture Stat Micro 07/29/20 11:28 Received - Reevaluation(s) Time: 12:29 Reevaluation #1: On reevaluation, patient is feeling better. She does have some mild acute kidney injury, however no urine infection. Chest x-ray was unremarkable. Patient's repeat neurologic exam does not show any focal deficit. Patient is to follow-up with PCP in 48 hours. Given strict return precautions. Verbalized understanding. Medical Decision Narrative:
[2020-07-29 10:55] LABS: Calcium 9.2 mg/dl (8.4-10.2); Glucose 167 mg/dl (74-100)
[2020-07-29 11:01] LABS: Basophils % 0.2 % (0.1-2.0); Red Cell Distribution Width 18.9 % (11.5-17.5)
[2020-07-29 11:03] LABS: Eosinophils % 0.2 % (0.1-12.0); Hematocrit 32.9 % (37.0-47.0); Hemoglobin 10.3 g/dL (12.2-16.2); Lymphocytes # 0.6 K/mm3 (0.7-4.5); Lymphocytes % 5.7 % (10-50); MANUAL DIFFERENTIAL MANUAL DIFFERENTIAL (MANUAL DIFF); Mean Corpuscular HGB Conc 31.2 g/dL (31.8-35.4); Mean Corpuscular Hemoglobin 23.7 pg (27.0-31.2); Mean Corpuscular Volume 76.1 fl (81-99); Mean Platelet Volume 7.8 fl (7.4-10.4); Monocytes # 0.2 K/mm3 (0.1-1.0); Monocytes % 1.6 % (1.7-9.3); Neutrophils # 9.2 K/mm3 (1.8-7.8); Neutrophils % 92.3 % (37.0-80.0); Platelet Count 260 K/mm3 (142-424); Red Blood Count 4.32 M/mm3 (4.20-5.40)
[2020-07-29 11:13] LABS: Lymphocytes % 8 % (10-50); Monocytes % 2 % (2-9); Neutrophils % 90 % (42-76); Total Cells Counted 100
[2020-07-29 11:14] LABS: Anisocytosis 1+; Hypochromasia 1+; Microcytosis 1+; Platelet Estimate Normal; Poikilocytosis 2+; Tear Drop Cells 1+
[2020-07-29 11:21] LABS: Acetone, Serum (Rapid) None Detected (None Detect)
[2020-07-29 11:34] LABS: Microscopic, Urine URINE MICROSCOPIC (MICROSCOPIC)
[2020-07-29 11:36] LABS: Appearance,Urine CLEAR (Clear); Bilirubin,Urine Negative (Negative); Blood, Urine Negative (Negative); Color,Urine YELLOW (Yellow); Glucose,Urine (UA) Negative (Negative); Ketones,Urine Negative (Negative); Leukocyte Esterase,Urine 1+ (Negative); Nitrate,Urine Negative (Negative); PH,Urine 5.5 (5.0-8.5); Protein,Urine TRACE (Negative); Urobilinogen,Urine 0.2 EU/dl (0.2)
[2020-07-29 11:55] LABS: Amorphous Sediment,Urine 1+ /lpf; Squamous Epithelial Cell,Urine Occasional #/hpf (0-5)
--- NOTE | 2020-07-29 12:50 | PC.NURSE ---
patient up for discharge. patient reports patient ride left to go to work. Patient provided phone number of friend to attempt for transportation. Evelio COTTER will attempt to locate transportation for patient
--- NOTE | 2020-07-29 13:08 | PC.NURSE ---
Patient friend agreed to come pick patient up at ED. Patient friend stated her ETA will be about 20 minutes. Patient will remain in room waiting for ride. Will continue to monitor patient
== END 2020-07-29 13:34 | disposition home or self-care (01) ==
PROVIDERS: Emergency Provider Emergency Medicine; PCP Family Medicine
DX: R53.83 Other fatigue (principal); I62.9 Nontraumatic intracranial hemorrhage, unspecified; G83.11 Monoplegia of lower limb affecting right dominant side; I48.91 Unspecified atrial fibrillation; I25.10 Atherosclerotic heart disease of native coronary artery without angina pectoris; I10 Essential (primary) hypertension
CPT/HCPCS: 71045; 80053; 81001; 82009; 85007; 85025; 87086; 87088; 87186; 96365; 99282

== ENCOUNTER 2020-08-02 16:23 | Inpatient (IN) | payer MEDICARE, SELFPAY ==
[2020-08-02] VITALS (12 sets, daily range): BP systolic 103–120; BP diastolic 44–65; PULSE 102–107; RESP 12–19; TEMP 36.4–36.6; O2SAT 97–100; BMI 24.2; BMI 24.6
--- NOTE | 2020-08-02 16:12 | ECG_ITS ---
APPROVED REPORT Exam: Resting ECG HR:105 bpm ECG Measurements Heart Rate 105 AXES QRSd 138 QRS -38 QT 374 T 174 QTc 494 Conclusion Wide QRS rhythm Left axis deviation Left bundle branch block Abnormal ECG Electronically signed by : Kirby Bellamy, 08/02/2020 17:49:14
--- NOTE | 2020-08-02 16:26 | HMH.EDGENADL ---
ED Disposition Clinical Impression: Non-STEMI (non-ST elevated myocardial infarction), LOPEZ (acute kidney injury), Dehydration Anemia Qualifiers: Anemia type: unspecified type Qualified Code(s): D64.9 - Anemia, unspecified Disposition: Admitted As Inpatient Condition on Discharge: Serious - Critical Care Critical Care Time: No Attestation: On 08/02/20, the high probability of a clinically significant, sudden or life threatening deterioration of the following system(s) required my full and direct attention, intervention and personal management. The time I documented below is in addition to time spent performing reported procedures but includes the following listed in this critical care notation. Medical Decision Making - Medical Records Medical records reviewed: Yes: I reviewed the patient's medical records. MR Comment: Reviewed emergency department visit 07/29/2020 - Maninder Inquiry Pt receiving controlled substance: No Vital Signs: 08/02/20 16:23 08/02/20 17:09 08/02/20 17:30 Temperature 97.9 F Temperature Source Oral Pulse Rate 106 H 107 H Pulse Rate [Right] 103 H Respiratory Rate 14 15 12 Blood Pressure 104/44 L 103/61 L Blood Pressure [Right Arm] 105/65 L Blood Pressure Mean 67 Blood Pressure Mean [Right Arm] 78 02 Sat by Pulse Oximetry 97 100 98 Oxygen Delivery Method Room Air 08/02/20 18:00 08/02/20 18:30 Temperature Temperature Source Pulse Rate 106 H 107 H Pulse Rate [Right] Respiratory Rate 19 14 Blood Pressure 113/49 L 110/49 L Blood Pressure [Right Arm] Blood Pressure Mean 60 63 Blood Pressure Mean [Right Arm] 02 Sat by Pulse Oximetry 98 100 Oxygen Delivery Method - Lab Data Lab Results 08/02/20 17:12: WBC 14.8 H, RBC 3.64 L, Hgb 8.8 L, Hct 29.3 L, MCV 80.5 L, MCH 24.1 L, MCHC 29.9 L, RDW 20.2 H, Plt Count 234, MPV 7.7, Neut % (Auto) 92.6 H, Lymph % (Auto) 4.4 L, [place] % (Auto) 2.3, Eos % (Auto) 0.3, Baso % (Auto) 0.4, Neut # (Auto) 13.7 H, Lymph # (Auto) 0.7, [place] # (Auto) 0.3, Eos # (Auto) 0.1, Baso # (Auto) 0.1 08/02/20 17:12: Sodium 131 L, Potassium 4.7, Chloride 107, Carbon Dioxide 14 L, Anion Gap 14.7, BUN 90 H, Creatinine 2.00 H, Estimated Creat Clear 28, Estimated GFR 25 L, Est GFR ( Amer) 30 L, Glucose 128 H, Calcium 8.5, Troponin I 0.26 H Result diagrams: 08/02/20 17:12 08/02/20 17:12 Orders (Tests/Meds): ED MEDICATIONS Generic Name Dose Route Start Last Admin Trade Name Freq PRN Reason Stop Dose Admin Sodium Chloride 1,000 mls @ 150 mls/hr 08/02/20 18:15 08/02/20 18:14 Sod Chlor 0.9% 1000ml Bag IV 09/01/20 18:14 150 mls/hr .Q6H40M YUSUF Administration Sodium Chloride 250 mls @ 25 mls/hr 08/02/20 18:45 Sod Chlor 0.9% 250ml Bag IV 08/03/20 18:44 .Q10H YUSUF ORDERS Category Date Time Status Complete Blood Count Auto Diff Stat Lab 08/02/20 17:12 Results Occult Blood,Stool Stat Lab 08/02/20 18:48 Ordered Rapid PCR Covid and Flu A/B Stat Lab 08/02/20 18:13 Received Thyroid Panel Stat Lab 08/02/20 18:17 Ordered Troponin I Q3H Lab 08/02/20 19:45 Ordered Troponin I Q3H Lab 08/02/20 22:45 Ordered ECG Request by /Rich Stat Y 08/02/20 16:33 Ordered - Radiology Data #1 Image(s): Chest Image Reviewed: Yes I reviewed the patient's radiology image, Yes I have reviewed radiologist's interpretation PROCEDURE INFORMATION: Exam: XR Chest Exam date and time: 08/02/2020 4:46 PM Age: 70 years old Clinical indication: Shortness of breath; Other: Pain in center of chest; Prior surgery; Surgery date: 6+ months; Surgery type: Cabg x2 in 2009; Additional info: Cp TECHNIQUE: Imaging protocol: XR of the chest. Views: 1 view. COMPARISON: CR XR CHEST PORTABLE 07/29/2020 6:37 AM FINDINGS: Tubes, catheters and devices: There are sternal wires consistent with previous sternotomy incision. Lungs: The lungs are hyperinflated, consistent with underlying small airways disease. At
--- NOTE | 2020-08-02 16:36 | PC.NURSE ---
CHAVEZ GODFREY at
--- NOTE | 2020-08-02 16:46 | XR_ITS ---
PROCEDURE INFORMATION: Exam: XR Chest Exam date and time: 08/02/2020 4:46 PM Age: 70 years old Clinical indication: Shortness of breath; Other: Pain in center of chest; Prior surgery; Surgery date: 6+ months; Surgery type: Cabg x2 in 2009; Additional info: Cp TECHNIQUE: Imaging protocol: XR of the chest. Views: 1 view. COMPARISON: CR XR CHEST PORTABLE 07/29/2020 6:37 AM FINDINGS: Tubes, catheters and devices: There are sternal wires consistent with previous sternotomy incision. Lungs: The lungs are hyperinflated, consistent with underlying small airways disease. Atelectatic changes within the lung bases without focal pneumonia. Pleural spaces: Unremarkable. No pleural effusion. No pneumothorax. Heart/Mediastinum: The heart demonstrates mild diffuse enlargement. Vasculature: The vasculature demonstrates diffuse mild atherosclerotic calcification. Bones/joints: Postoperative changes of the thoracolumbar spine. IMPRESSION: 1. The lungs are hyperinflated, consistent with underlying small airways disease. 2. Atelectatic changes within the lung bases without focal pneumonia. 3. The heart demonstrates mild diffuse enlargement.
[2020-08-02 17:47] LABS: Anion Gap 14.7 mEq/L (5-15); Calcium 8.5 mg/dl (8.4-10.2); Carbon Dioxide 14 mmol/L (22.0-30.0); Chloride 107 mmol/L (98-107); Creatinine Clearance Estimated 28 mL/min (50-200); Estimated Glomerular Filt Rate 25 ml/min (>60); GFR (African American) 30 ML/MIN (>60); Glucose 128 mg/dl (74-100); Potassium 4.7 mmoL/L (3.5-5.1); Sodium 131 mmol/L (136-145)
[2020-08-02 17:59] LABS: Troponin I 0.26 ng/ml (0.00-0.034)
[2020-08-02 18:08] LABS: Blood Urea Nitrogen 90 mg/dl (7-17)
--- NOTE | 2020-08-02 18:09 | PC.NURSE ---
CRITICAL CALLED. PATIENT BUN 90. NOTIFIED
[2020-08-02 18:16] LABS: Coronavirus 19, PCR Not Detected (NotDetected); Influenza A, PCR Not Detected (NotDetected); Influenza B, PCR Not Detected (NotDetected)
--- NOTE | 2020-08-02 18:18 | PC.NURSE ---
Dr Rivera consulting with Dr Husain about patient
[2020-08-02 18:20] LABS: Basophils # 0.1 K/mm3 (0-0.2); Basophils % 0.4 % (0.1-2.0); Eosinophils # 0.1 K/mm3 (0.0-0.4); Eosinophils % 0.3 % (0.1-12.0); Hematocrit 29.3 % (37.0-47.0); Hemoglobin 8.8 g/dL (12.2-16.2); Lymphocytes # 0.7 K/mm3 (0.7-4.5); Lymphocytes % 4.4 % (10-50); Mean Corpuscular HGB Conc 29.9 g/dL (31.8-35.4); Mean Corpuscular Hemoglobin 24.1 pg (27.0-31.2); Mean Corpuscular Volume 80.5 fl (81-99); Mean Platelet Volume 7.7 fl (7.4-10.4); Monocytes # 0.3 K/mm3 (0.1-1.0); Monocytes % 2.3 % (1.7-9.3); Neutrophils # 13.7 K/mm3 (1.8-7.8); Neutrophils % 92.6 % (37.0-80.0); Platelet Count 234 K/mm3 (142-424); Red Blood Count 3.64 M/mm3 (4.20-5.40); Red Cell Distribution Width 20.2 % (11.5-17.5); White Blood Count 14.8 K/mm3 (4.8-10.8)
[2020-08-02 18:24] LABS: MANUAL DIFFERENTIAL MANUAL DIFFERENTIAL (MANUAL DIFF)
--- NOTE | 2020-08-02 18:46 | PC.NURSE ---
CALLED LAB AND SPOKE WITH CJ ABOUT A TYPE AND SCREEN ORDER ON PATIENT. INFORMED THAT A EMPLOYMENT SERVICES DIRECTOR WILL BE UP SOON THEY CAN
--- NOTE | 2020-08-02 18:47 | PC.NURSE ---
MULTIPLE IV ATTEMPTS WITHOUT SUCCESS TO ESTABLISH A 20-G IV. MARYAM COTTER WILL ASK OTHER NURSING STAFF TO OBTAIN AN 20-G IV
--- NOTE | 2020-08-02 18:58 | PC.NURSE ---
ATTEMPTED 20-G WITHOUT SUCCESS
--- NOTE | 2020-08-02 18:59 | PC.NURSE ---
LAB AT BEDSIDE ATTEMPTING TO OBTAIN A TYPE AND SCREEN
--- NOTE | 2020-08-02 19:13 | PC.NURSE ---
Pt with tenting turgor venous access attempted and failed multiple time. 22 ga in right hand is all available, blood will have to be on hold until a deep line is established.
[2020-08-02 19:40] LABS: Microscopic, Urine URINE MICROSCOPIC (MICROSCOPIC)
[2020-08-02 19:53] LABS: Appearance,Urine CLEAR (Clear); Bilirubin,Urine Negative (Negative); Blood, Urine 1+ (Negative); Color,Urine YELLOW (Yellow); Glucose,Urine (UA) Negative (Negative); Ketones,Urine Negative (Negative); Leukocyte Esterase,Urine 3+ (Negative); Nitrate,Urine Negative (Negative); PH,Urine 5.5 (5.0-8.5); Protein,Urine 1+ (Negative); Specific Gravity, Urine 1.025 (1.005-1.030); Urobilinogen,Urine 0.2 EU/dl (0.2)
--- NOTE | 2020-08-02 20:03 | PC.NURSE ---
PT ARRIVED TO FLOOR VIA STRETCHER FROM ED W/STAFF AT 2004
[2020-08-02 20:10] LABS: Bacteria,Urine 2+ /lpf; Mucus,Urine 1+ /lpf; WBC,Urine 20-50 #/hpf (0-3)
[2020-08-02 20:47] LABS: Occult Blood,Stool Negative (Negative)
--- NOTE | 2020-08-02 20:48 | PC.NURSE ---
pile driving supervisor attempted x2 to get IV with no success.
[2020-08-02 20:52] LABS: Eosinophils % 2 % (0-3); Lymphocytes % 6 % (10-50); Monocytes % 2 % (2-9); Neutrophils % 90 % (42-76); Total Cells Counted 100
[2020-08-02 20:53] LABS: Anisocytosis 2+; Microcytosis 2+; Platelet Estimate Normal
[2020-08-02 20:54] LABS: Hypochromasia 3+
[2020-08-03] VITALS (21 sets, daily range): BP systolic 105–137; BP diastolic 42–52; PULSE 98–105; RESP 15–20; TEMP 36.4–36.6; O2SAT 92–100; BMI 25.0
--- NOTE | 2020-08-03 00:42 | PC.NURSE ---
patient c/o muscle pain in b/l arms and across chest and upper torso pain scale 9/10; received v.o. from Dr. Myers Morphine 2mg IVP x 1 dose
--- NOTE | 2020-08-03 01:21 | PC.NURSE ---
patient states she has a sensitivity to larger doses of Morphine that it causes nausea.
--- NOTE | 2020-08-03 02:42 | PC.WOUNDNOTE ---
Stage 2. Open areas. No drainage.
--- NOTE | 2020-08-03 02:44 | PC.WOUNDNOTE ---
Abrasion to anterior left guzman
[2020-08-03 03:15] LABS: Basophils % 0.2 % (0.1-2.0); Eosinophils # 0.1 K/mm3 (0.0-0.4); Eosinophils % 0.5 % (0.1-12.0); Lymphocytes # 0.5 K/mm3 (0.7-4.5); Lymphocytes % 3.1 % (10-50); Mean Corpuscular HGB Conc 30.8 g/dL (31.8-35.4); Mean Platelet Volume 7.3 fl (7.4-10.4); Monocytes # 0.3 K/mm3 (0.1-1.0); Monocytes % 2.1 % (1.7-9.3); Neutrophils % 94.2 % (37.0-80.0); Platelet Count 246 K/mm3 (142-424); Red Blood Count 2.85 M/mm3 (4.20-5.40); Red Cell Distribution Width 21.2 % (11.5-17.5); White Blood Count 15.9 K/mm3 (4.8-10.8)
[2020-08-03 03:20] LABS: Troponin I 0.26 ng/ml (0.00-0.034)
[2020-08-03 03:22] LABS: MANUAL DIFFERENTIAL MANUAL DIFFERENTIAL (MANUAL DIFF)
[2020-08-03 03:24] LABS: Hematocrit 22.5 % (37.0-47.0); Hemoglobin 6.9 g/dL (12.2-16.2)
[2020-08-03 03:32] LABS: Anion Gap 12.6 mEq/L (5-15); Calcium 8.3 mg/dl (8.4-10.2); Carbon Dioxide 17 mmol/L (22.0-30.0); Chloride 107 mmol/L (98-107); Creatinine Clearance Estimated 27 mL/min (50-200); Estimated Glomerular Filt Rate 23 ml/min (>60); GFR (African American) 28 ML/MIN (>60); Glucose 114 mg/dl (74-100); Potassium 4.6 mmoL/L (3.5-5.1); Sodium 132 mmol/L (136-145)
[2020-08-03 03:50] LABS: Blood Urea Nitrogen 87 mg/dl (7-17)
--- NOTE | 2020-08-03 05:11 | PC.NURSE ---
Patient difficult able to obtain a 2nd IV access achieved with a 20g placed. Able to obtain Blood Type and cross still pending for blood transfusion due to multiple unsuccessful sticks in obtaining blood needed for testing.
[2020-08-03 05:51] LABS: Lymphocytes % 6 % (10-50); Monocytes % 1 % (2-9); Neutrophils % 93 % (42-76); Total Cells Counted 100
[2020-08-03 05:52] LABS: Hypochromasia 1+; Ovalocytes 1+; Platelet Estimate Normal
--- NOTE | 2020-08-03 07:17 | CA_ITS ---
APPROVED REPORT EXAM: Comprehensive 2D, Doppler, and color-flow Echocardiogram Sales Promotion Manager: Lizzy Reyez CRT Ht: 5 ft 6 in Wt: 156lbs BSA: 1.80 BP: 103/61 mmHg Indications: CABG 2 SEPARATE TIMES, AFIB, watchman procedure, MV repair, NSTEMI 2D Dimensions LVOT 1.84 cm (M/F) 1.5-2.5 LA Volume 61.40 mL LA Volume Index 34.10 mL/m2 (M/F) 16-34 M-Mode Dimensions RVDd 2.35 cm (0.9-2.6) LA Diam 3.48 cm (1.9-4.0) LVDd 4.76 cm (3.5-5.7) Ao Diam 3.90 cm (2.0-3.7) LVDs 3.44 cm (3.5-5.7) IVSd 1.03 cm (0.6-1.1) PWd 1.35 cm (0.6-1.1) EF (Teich) 53.70% FS 27.70% EDV (Teich) 105.40 mL ESV (Teich) 48.80 mL Aortic Valve LVOT Max 161.00 (70-110 cm/s) LVOT VTI 28.28 cm AoV Peak Chele. 212.00 (50-130 cm/s) AO Peak GR. 18.00 mmHg AO Mean GR. 9.20 (<5 mmHg) AO VTI 35.28 (18-25 cm) ILYA (VTI) 2.13 (2.5-4.5 cm2) Pulmonary Valve PV Peak Velocity 210.00 (50-150 cm/s) Tricuspid Valve TR P. Velocity 333.00 cm/s RAP Estimate 10.00 mmHg RVSP 54.40 mmHg Left Ventricle Left atrium is moderately enlarged, left ventricle is mildly dilated, mild concentric left ventricular hypertrophy, visually estimated ejection fraction 45%, left ventricle appears to be globally hypokinetic, endocardial surfaces are poorly visualized. Doppler evidence of raise left ventricular end-diastolic pressure. Diastolic parameters are inconclusive. Right Ventricle Right atrium and right ventricle are qualitatively mildly enlarged with normal contractility. Aortic Valve Aortic valve is thickened and calcified, there is echodense mobile structure seen attached to the aortic valve leaflet, this likely represents a valvular vegetation, there is severe aortic insufficiency, mean gradient across the aortic valve is 9.2 mmHg just does not represent any significant aortic stenosis. Mitral Valve There is mitral valve ring noted in the mitral position, posterior mitral leaflet is redundant, there is no mitral inflow obstruction, there is moderate mitral regurgitation. Timing of the mitral valve closure is difficult to assess from the study. Tricuspid Valve There is mild tricuspid regurgitation noted, tricuspid valve leaflets are minimally thickened, calculated right ventricular systolic pressure is 48 mmHg. Pulmonic Valve Pulmonic valve is poorly visualized. Great Vessels Aortic root is normal size. Inferior vena cava is mildly dilated without significant inspiratory collapse. Pericardium No significant pericardial effusion noted. Conclusion 1. Biatrial enlargement, mildly dilated left ventricle, visually estimated ejection fraction 45%, left ventricle is globally hypokinetic, Doppler evidence of raise left ventricular end-diastolic pressure, diastolic parameters are inconclusive. 2. Abnormal aortic valve as described above likely has a valvular vegetation associated with severe aortic insufficiency, the timing of the mitral valve present cannot be assessed from this study. There is mild aortic stenosis. 3. Status post mitral valve repair without significant mitral inflow obstruction, there is moderate mitral regurgitation. 4. Mild tricuspid regurgitation, calculated right ventricular systolic pressure is 48 mmHg. 5. There is no significant pericardial effusion noted, inferior vena cava is mildly dilated without significant inspiratory collapse. Electronically signed by : Zev Gilman, 08/03/2020 10:12:43
--- NOTE | 2020-08-03 07:44 | HMH.HP ---
*Admission Date: 08/02/20 *Chief complaint: Chest pain and weakness *History of present illness: 70-year-old female with long history of atrial fibrillation, coronary artery disease, and more recently a hospitalization at [facility] for an intracranial hemorrhage due to coagulopathy (July 12) presented to the emergency department for the second time in a week with current complaint of pain that developed in the axillary areas then spreads across the chest and down both arms. Pain will also radiate into the back. Pain has been relieved with morphine 2 mg IV. While patient has morphine listed as an allergy the medication actually only causes nausea. Work-up in the emergency department yesterday revealed mild worsening of patient's renal function with creatinine elevated to 2.1 and BUN rising to 90. Patient also had elevated troponin. Cardiology was contacted. Patient was admitted with diagnosis of non-STEMI and acute kidney injury on top of chronic kidney disease. This morning the patient reports feeling weak. She has had at least 1 fall at home where she suffered an abrasion to the left lower leg. Patient's hemoglobin decreased overnight to less than 7 and she is currently receiving 2 units of packed red blood cells. Patient's baseline creatinine is around 1.9. During patient's last hospitalization at [facility] there had been apparent discussion of rehabilitation stay at [facility] which the patient declined. She was taken off warfarin at that hospitalization due to her supratherapeutic INR and intracranial hemorrhage. Patient's discharge hemoglobin from [facility] was 8 or slightly less. Patient did not receive any transfusion during that hospitalization Patient has had a rather rapid decline in health over the last 2 months which began around the same time the patient received her Covid vaccination. Since that time patient has had increasing fatigue and malaise with profound weakness. She has had multiple falls at home. She has complained of generalized myalgias but never a specific as her current complaint of pain. [facility] History I have reviewed the patient's past medical history: Yes Medical History: Reports:: Atrial Fibrillation, Cancer (cervical), Coronary Artery Disease, Hyperlipidemia, Hypertension, Peripheral Artery Disease Denies:: Diabetes Mellitus Type 1, Diabetes Mellitus Type 2, MRSA, Seizures *Have you ever received a pneumonia vaccine?: Yes *Have you received a flu vaccine this season?: No Other Medical History: Reports: Anemia Comment:: Chronic kidney disease stage IIIb Other Surgeries: Yes: CABG, Cardiac Catheterization, Cardiac Surgery, Colostomy, Coronary Stent - *Social History Smoking Status: Never smoker Alcohol Intake: never Substance Use Type: denies use *Occupational Status:: retired Housing: house Household Members: none *Travel in the last 8 weeks: None Family Hx:: Anemia, Cancer, Diabetes, Heart Attack, Hyperlipidemia, Hypertension, Kidney Disease, Stroke Review of Systems - Constitutional Reports anorexia, Reports body ache(s), Reports fatigue, Reports lack of energy, Reports malaise, Reports weight loss - Eyes Reports blind spots - ENT Denies abnormal hearing - *Cardiovascular Reports chest pain, Reports chest pain at rest, Reports chest pain with activity - *Respiratory Reports shortness of breath, Denies change in phlegm color - *Gastrointestinal Denies abdominal pain - *Genitourinary Denies difficulty urinating - *Musculoskeletal Reports abnormal walking, Reports joint pain, Reports decreased muscle mass, Reports muscle weakness - Integumentary/Breasts Reports bleeding lesions - *Neurologic Reports weakness Meds Home Medications Medication Instructions Recorded Confirmed Type metoprolol tartrate 100 mg tablet 100 mg PO BID 02/23/20 08/02/20 History multivitamin 1 tab PO DAILY 02/23/20 08/02/20 History Aspirin 81 mg PO DAILY
--- NOTE | 2020-08-03 07:47 | P.CONPHA_ITS ---
[facility] Pharmacy VTE Monitoring - Patient Demographics Admission date: 08/02/20 Report Date: 08/03/20 Time: 07:47 Allergies/Adverse Reactions: Patient Allergies corn Allergy (Intermediate, Verified 02/24/20 08:14) Difficulty Breathing dextrose Allergy (Unknown, Verified 02/24/20 08:14) Unknown allergy reaction sucralose [From SPLENDA (SUCRALOSE)] Adverse Reaction (Intermediate, Verified 08/03/20 07:39) NA-NAUSEA morphine [MORPHINE] Adverse Reaction (Mild, Verified 08/03/20 07:39) Nausea propoxyphene Adverse Reaction (Unknown, Verified 08/03/20 07:39) NA-NAUSEA/VOMITING Height: 1.68 m Weight: 70.789 kg Patient Problems: Current Active Problems Non-STEMI (non-ST elevated myocardial infarction) (Acute) LOPEZ (acute kidney injury) (Acute) Dehydration (Acute) Anemia (Acute) - VTE Risk Labs: VTE Related Lab Results Hgb 6.9 g/dL (12.2-16.2) L* D 08/03/20 02:40 Hct 22.5 % (37.0-47.0) L* 08/03/20 02:40 Plt Count 246 K/mm3 (142-424) 08/03/20 02:40 BUN 87 mg/dl (7-17) H 08/03/20 02:40 Creatinine 2.10 mg/dl (0.52-1.04) H 08/03/20 02:40 Estimated Creat Clear 27 mL/min (50-200) 08/03/20 02:40 VTE Score: 4 VTE Risk Level: Low Risk - Prophylaxis VTE Prophylaxis Ordered?: Yes Types of VTE Prophylaxis: TEDS Knee High Location of Applied Device: Bilateral Lower Extremeties
--- NOTE | 2020-08-03 09:06 | HMH.PHAINT ---
HOME MEDICATION LIST VERIFIED USING LIST FROM DR. QUINN' OFFICE AND [facility]
--- NOTE | 2020-08-03 09:44 | HMH.CNCARD ---
History of Present Illness Consult date: 08/03/20 Requesting physician: Kirby Walsh Consult reason: chest pain Chief complaint: chest pain History of present illness: This is a 70-year-old white female who presented to the emergency department with complaints of chest pain. Of note she does have a history of atrial fibrillation, coronary artery disease, hypertension, hyperlipidemia, PAD and was recently hospitalized at [facility] in [place] for an intracranial hemorrhage due to coagulopathy. The patient presented to the emergency department for the second time this week with chest pain. She states that it is a gripping, squeezing sensation in the substernal aspect of her chest and radiates across her chest and down both of her arms to her wrists and to her back. The patient states that this is occurring at rest. It is associated with shortness of breath, nausea and diaphoresis. She states that she has been extremely fatigued and weak and just does not feel well. She states that nothing was helping to improve her pain at home. She was given morphine [facility] and had improvement in her chest pain. While in the emergency department the patient was found to have a slight worsening in her renal function, and elevated troponin and she was also anemic. Her troponin is elevated but has remained stable and has not gone up any since her initial troponin at 0.26. Her creatinine is up to 2.1 and her baseline is around 1.9 per her primary care providers note. The patient is anemic with a hemoglobin of 6.9 and a hematocrit of 22.5. She has had 2 units of packed red blood cells transfused this morning. She states that her symptoms are still present although they are a little bit better. While she was at [facility] in [place] for the intracranial hemorrhage, her Coumadin was stopped at that time. She does report that she has not felt well the last 2 months after getting her Covid vaccine. [facility] History I have reviewed the patient's past medical history: Yes Medical History: Reports:: Atherosclerotic Heart Disease, Atrial Fibrillation, Cancer (cervical), Coronary Artery Disease, Cerebrovascular Accident, Hyperlipidemia, Hypertension, Peripheral Artery Disease, Renal Disease, Renal Insufficiency Denies:: Diabetes Mellitus Type 1, Diabetes Mellitus Type 2, MRSA, Seizures *Have you ever received a pneumonia vaccine?: Yes *Have you received a flu vaccine this season?: No Other Medical History: Reports: Anemia Other Surgeries: Yes: CABG, Cardiac Catheterization, Cardiac Surgery, Colostomy, Coronary Stent - *Social History Smoking Status: Never smoker Alcohol Intake: never Substance Use Type: denies use *Occupational Status:: retired Housing: house Household Members: none *Travel in the last 8 weeks: None Family Hx:: Anemia, Cancer, Diabetes, Heart Attack, Hyperlipidemia, Hypertension, Kidney Disease, Stroke Meds Home Medications Medication Instructions Recorded Confirmed Type metoprolol tartrate 100 mg tablet 100 mg PO BID 02/23/20 08/02/20 History multivitamin 1 tab PO DAILY 02/23/20 08/02/20 History Aspirin 81 mg PO DAILY 08/02/20 08/02/20 History Gabapentin [Gabapentin 100mg Cap] 100 mg PO DAILYP PRN 08/02/20 08/03/20 History Allergies Allergy/AdvReac Type Severity Reaction Status Date / Time corn Allergy Intermediate Difficulty Verified 02/24/20 08:14 Breathing dextrose Allergy Unknown Unknown Verified 02/24/20 08:14 allergy reaction sucralose AdvReac Intermediate NA-NAUSEA Verified 08/03/20 07:39 [From SPLENDA (SUCRALOSE)] morphine [MORPHINE] AdvReac Mild Nausea Verified 08/03/20 07:39 propoxyphene AdvReac Unknown NA-NAUSEA/V Verified 08/03/20 07:39 OMITING Exam Vital signs and Labs for Last 24 Hours: Temp Pulse Resp BP Pulse Ox 97.6 F 102 H 18 128/52 L 95 08/03/20 09:00 08/03/20 09:00 08/03/20 09:00 08/03/20 09:00 08/03/20 09:00 Laboratory Results - l
--- NOTE | 2020-08-03 10:28 | HMH.PHACONS ---
- Pharmacy Consult Date: 08/03/20 Time: 10:28 Referring provider: DR. YOUNG Reason for Consult:: VANCOMYCIN DOSING Allergies and ADEs:: Allergies Allergy/AdvReac Type Severity Reaction Status Date / Time corn Allergy Intermediate Difficulty Verified 02/24/20 08:14 Breathing dextrose Allergy Unknown Unknown Verified 02/24/20 08:14 allergy reaction sucralose AdvReac Intermediate NA-NAUSEA Verified 08/03/20 07:39 [From SPLENDA (SUCRALOSE)] morphine [MORPHINE] AdvReac Mild Nausea Verified 08/03/20 07:39 propoxyphene AdvReac Unknown NA-NAUSEA/V Verified 08/03/20 07:39 OMITING Home Medications:: Home Medications Medication Instructions Recorded Confirmed Type metoprolol tartrate 100 mg tablet 100 mg PO BID 02/23/20 08/02/20 History multivitamin 1 tab PO DAILY 02/23/20 08/02/20 History Aspirin 81 mg PO DAILY 08/02/20 08/02/20 History Gabapentin [Gabapentin 100mg Cap] 100 mg PO DAILYP PRN 08/02/20 08/03/20 History Height: 1.68 m Weight: 70.789 kg Laboratory Results:: Laboratory Results - last 24 hr 08/02/20 02:40: Blood Type O Positive, Antibody Screen Negative, Crossmatch (AHG) See Detail 08/02/20 17:12: WBC 14.8 H, RBC 3.64 L, Hgb 8.8 L, Hct 29.3 L, MCV 80.5 L, MCH 24.1 L, MCHC 29.9 L, RDW 20.2 H, Plt Count 234, MPV 7.7, Neut % (Auto) 92.6 H, Lymph % (Auto) 4.4 L, Emanuel % (Auto) 2.3, Eos % (Auto) 0.3, Baso % (Auto) 0.4, Neut # (Auto) 13.7 H, Lymph # (Auto) 0.7, Emanuel # (Auto) 0.3, Eos # (Auto) 0.1, Baso # (Auto) 0.1, Total Counted 100, Neutrophils % (Manual) 90 H, Lymphocytes % (Manual) 6 L, Monocytes % (Manual) 2, Eosinophils % (Manual) 2, Platelet Estimate Normal, Hypochromasia 3+, Anisocytosis 2+, Microcytosis 2+ 08/02/20 17:12: Sodium 131 L, Potassium 4.7, Chloride 107, Carbon Dioxide 14 L, Anion Gap 14.7, BUN 90 H, Creatinine 2.00 H, Estimated Creat Clear 28, Estimated GFR 25 L, Est GFR ( Amer) 30 L, Glucose 128 H, Calcium 8.5, Troponin I 0.26 H 08/02/20 18:13: SARS-CoV-2 (PCR) Not detected, Influenza A Untype (PCR) Not detected, Influenza Type B (PCR) Not detected 08/02/20 18:30: Stool Occult Blood Negative 08/02/20 18:44: Urine Color Yellow, Urine Appearance Clear, Urine pH 5.5, Ur Specific [place] 1.025, Urine Protein 1+, Urine Glucose (UA) Negative, Urine Ketones Negative, Urine Blood 1+, Urine Nitrate Negative, Urine Bilirubin Negative, Urine Urobilinogen 0.2, Ur Leukocyte Esterase 3+ A, Urine WBC 20-50, Ur Squamous Epith Cells 3-5, Urine Bacteria 2+, Urine Mucus 1+ 08/03/20 02:40: WBC 15.9 H, RBC 2.85 L, Hgb 6.9 L* D, Hct 22.5 L*, MCV 78.0 L, MCH 24.0 L, MCHC 30.8 L, RDW 21.2 H, Plt Count 246, MPV 7.3 L, Neut % (Auto) 94.2 H, Lymph % (Auto) 3.1 L, Emanuel % (Auto) 2.1, Eos % (Auto) 0.5, Baso % (Auto) 0.2, Neut # (Auto) 15.0 H, Lymph # (Auto) 0.5 L, Emanuel # (Auto) 0.3, Eos # (Auto) 0.1, Baso # (Auto) 0.0, Total Counted 100, Neutrophils % (Manual) 93 H, Lymphocytes % (Manual) 6 L, Monocytes % (Manual) 1 L, Platelet Estimate Normal, RBC Morphology Not Reportable, Hypochromasia 1+, Ovalocytes 1+ 08/03/20 02:40: Sodium 132 L, Potassium 4.6, Chloride 107, Carbon Dioxide 17 L D, Anion Gap 12.6, BUN 87 H, Creatinine 2.10 H, Estimated Creat Clear 27, Estimated GFR 23 L, Est GFR ( Amer) 28 L, Glucose 114 H, Calcium 8.3 L 08/03/20 02:40: Troponin I 0.26 H Medical History: Reports:: Atherosclerotic Heart Disease, Atrial Fibrillation, Cancer (cervical), Coronary Artery Disease, Cerebrovascular Accident, Hyperlipidemia, Hypertension, Peripheral Artery Disease, Renal Disease, Renal Insufficiency Denies:: Diabetes Mellitus Type 1, Diabetes Mellitus Type 2, MRSA, Seizures Assessment and Plan (1) Non-STEMI (non-ST elevated myocardial infarction) Status: Acute Category: Medical Code(s): I21.4 - Non-ST elevation (NSTEMI) myocardial infarction (2) LOPEZ (acute kidney injury) Status: Acute Category: Medical Code(s): N17.9 - Acute kidney failure, unspecified (3) Anemia Status: Acute Qualifiers:
--- NOTE | 2020-08-03 13:42 | SW/DCPLANNER ---
RECEIVED REFERRAL FOR A HOSPICE CONSULT FOR THIS PATIENT: FAXED PATIENT INFORMATION TO HOSPICE NAVIGATORS AND ERIKA VALDES RN ARE HERE TO SEE PATIENT TO EVALUATE AND DISCUSS DISCHARGE OPTIONS...HOSPICE CARE [facility]ENTER VS INPATIENT HERE AT [facility] WITH END OF LIFE/PALLIATIVE CARE... WAITING TO HEAR FROM THE RN DOING THE EVAL...
--- NOTE | 2020-08-03 16:50 | HMH.DCSUM ---
General - General Admission date:: 08/02/20 Discharge date: 08/03/20 HPI HPI: 70-year-old female with long history of atrial fibrillation, coronary artery disease, and more recently a hospitalization at [facility] for an intracranial hemorrhage due to coagulopathy (July 12) presented to the emergency department for the second time in a week with current complaint of pain that developed in the axillary areas then spreads across the chest and down both arms. Pain will also radiate into the back. Pain has been relieved with morphine 2 mg IV. While patient has morphine listed as an allergy the medication actually only causes nausea. Work-up in the emergency department yesterday revealed mild worsening of patient's renal function with creatinine elevated to 2.1 and BUN rising to 90. Patient also had elevated troponin. Cardiology was contacted. Patient was admitted with diagnosis of non-STEMI and acute kidney injury on top of chronic kidney disease. This morning the patient reports feeling weak. She has had at least 1 fall at home where she suffered an abrasion to the left lower leg. Patient's hemoglobin decreased overnight to less than 7 and she is currently receiving 2 units of packed red blood cells. Patient's baseline creatinine is around 1.9. During patient's last hospitalization at [facility] there had been apparent discussion of rehabilitation stay at [facility] which the patient declined. She was taken off warfarin at that hospitalization due to her supratherapeutic INR and intracranial hemorrhage. Patient's discharge hemoglobin from [facility] was 8 or slightly less. Patient did not receive any transfusion during that hospitalization Patient has had a rather rapid decline in health over the last 2 months which began around the same time the patient received her Covid vaccination. Since that time patient has had increasing fatigue and malaise with profound weakness. She has had multiple falls at home. She has complained of generalized myalgias but never a specific as her current complaint of pain. Hospital Course Hospital Course: Patient was admitted for NSTEMI and LOPEZ with anemia. Patient received transfusion of 2 units of PRBC the night of admit. The following mornign patient underwent ECHO which revealed severe aortic insufficiency and a large aortic valve vegetation. Cardiology spoke with the patient regarding treatment, poor prognosis, and patient requested to be kept comfortable and did not want transfer. Hospice was consulted. Patient was transferred to the [facility]ospice care [facility] the evening of 08/03. IV morphine was used to control the patient's pain. Objective Vital signs: Temp Pulse Resp BP Pulse Ox 97.6 F 100 H 16 119/46 L 99 08/03/20 10:00 08/03/20 12:00 08/03/20 11:34 08/03/20 11:34 08/03/20 11:34 no acute distress - *Routine Respiratory Exam Present: CTA bilaterally - *Routine Cardiovascular Exam Present: tachycardia Results Labs on day of discharge: Labs from last 24 hours 08/03/20 08/03/20 08/03/20 02:40 02:40 02:40 WBC 15.9 H RBC 2.85 L Hgb 6.9 L* D Hct 22.5 L* MCV 78.0 L MCH 24.0 L MCHC 30.8 L RDW 21.2 H Plt Count 246 MPV 7.3 L Neut % (Auto) 94.2 H Lymph % (Auto) 3.1 L [place] % (Auto) 2.1 Eos % (Auto) 0.5 Baso % (Auto) 0.2 Neut # (Auto) 15.0 H Lymph # (Auto) 0.5 L [place] # (Auto) 0.3 Eos # (Auto) 0.1 Baso # (Auto) 0.0 Total Counted 100 Neutrophils % (Manual) 93 H Lymphocytes % (Manual) 6 L Monocytes % (Manual) 1 L Eosinophils % (Manual) Platelet Estimate Normal RBC Morphology Not Reportable Hypochromasia 1+ Anisocytosis Microcytosis Ovalocytes 1+ Sodium 132 L Potassium 4.6 Chloride 107 Carbon Dioxide 17 L D Anion Gap 12.6 BUN 87 H Creatinine 2.10 H Estimated Creat Clear 27 Estimated GFR 23
--- NOTE | 2020-08-03 17:57 | PC.NURSE ---
Pt alert and oriented x 4. Pt is currently resting in bed asleep. Pt has been tachy this shift, lungs cta, bs x 4. Dr. Husain did speak with pt about comfort care or being transferred to a higher level of care or hospice. Pt did request to be seen by hospice and is going to be transferred to an inpatient hospice care unit at [facility], this evening. Pt did speak to Valerie this shift, per her request. Pt has refused to turn and has been incontinent of urine x 2. Colostomy is in place to left lower abd without any concerns. Mx continues. This RN made Dr. Walsh aware this am of pts maps less than 65 and he did order oxycodone [address] Husain ordered morphine 5 mg IV q 15 mins prn pain. See apr. Jesus hose in place to BLE. Pt has had one unit of blood this shift and is refusing the second unit at this time. Pt just has stated she just wants to be out of pain, and her health has been deteriorating for some time now, and she wants to rest. CB in reach.
--- NOTE | 2020-08-03 20:19 | PC.NURSE ---
RA SATS 95%. RETURN PT TO 2LPM N/C
--- NOTE | 2020-08-03 20:53 | PC.NURSE ---
pt left with [facility] at this time to [facility]
[2020-08-04 07:09] LABS: Haptoglobin 231 mg/dL (37-355)
== END 2020-08-03 20:53 | disposition hospice, inpatient (51) | DRG 280 ==
LOC: ER 18:39 → 2ND 08-03 07:19
PROVIDERS: Nurse Practitioner Family; Admitting Provider Emergency Medicine; Emergency Provider Emergency Medicine; PCP Family Medicine; Visit Provider Family Medicine
DX: I21.4 Non-ST elevation (NSTEMI) myocardial infarction (principal); I33.0 Acute and subacute infective endocarditis; N17.9 Acute kidney failure, unspecified; I12.9 Hypertensive chronic kidney disease with stage 1 through stage 4 chronic kidney disease, or unspecified chronic kidney disease; I25.10 Atherosclerotic heart disease of native coronary artery without angina pectoris; I48.91 Unspecified atrial fibrillation; N18.32 Chronic kidney disease, stage 3b; E86.0 Dehydration; D63.1 Anemia in chronic kidney disease; I35.2 Nonrheumatic aortic (valve) stenosis with insufficiency; Z85.41 Personal history of malignant neoplasm of cervix uteri; I73.9 Peripheral vascular disease, unspecified; Z95.1 Presence of aortocoronary bypass graft; Z95.5 Presence of coronary angioplasty implant and graft
CPT/HCPCS: 36415; 71045; 80048; 81001; 82272; 83010; 84484; 85007; 85025; 86850; 87040; 87077; 87086; 87088; 87186; 93005; 93306; 96365; 99284; G0328; J2405; J3370; P9016; U0003